=== PATIENT | male | born 1970 | race Caucasian/White ===

== ENCOUNTER 2019-10-25 18:51 | Emergency (ER) | payer OTHER ==
[~2019-10-25] VITALS: Ht 157.5 cm; Wt 54.0 kg
[2019-10-25 19:05] VITALS: BP 163/94
--- NOTE | 2019-10-25 19:28 | PHYS DOC ---
Adult General Chief Complaint Chief Complaint: HYPERTENSION HPI HPI Patient is a 49 year old male who presents with concern for elevated blood pressure. Patient states she is monitor blood pressure daily has been doing so for the past month daily blood pressures averaging greater than 160. This afternoon, the patient states her blood pressure was in 170/110's. She denies symptoms of the time but does report feeling anxious afterwards sometimes after taking her blood pressure multiple times in a row. She also reports numbness in the arm in which she would take blood pressure cuff. She reports increased stress and difficulty sleeping at night possibly treating to abnormal blood pres sure readings. Patient is not currently on blood pressure medication, but has plans to follow-up with her PCP. Patient's blood pressure on ED arrival is 160s over 90s. Denies chest pains palpitations, shortness breath dizziness headache. No other acute symptoms or complaints. [] Review of Systems Review of Systems Review symptoms as per history of present illness. All other review symptoms are negative All other systems were reviewed and found to be within normal limits, except as documented in this note. Allergies Allergies Allergies Coded Allergies Type Severity Reaction Last Updated Verified No Known Drug Allergies 10/25/19 No Physical Exam Physical Exam Constitutional: Well developed, well nourished, no acute distress. [] HENT: Normocephalic, atraumatic, bilateral external ears normal, nose normal. [] Eyes: PERRLA, EOMI, conjunctiva normal, no discharge. [] Neck: Normal range of motion, no tenderness. [] Cardiovascular:Heart rate regular rhythm, no murmur [] Lungs & Thorax: Bilateral breath sounds clear to auscultation [] Abdomen: Bowel sounds normal, soft, no tenderness. [] Skin: Warm, dry, no erythema, no rash. [] Back: No tenderness. [] Extremities: No tenderness. [] Neurologic: Alert and oriented X 3, normal motor function, normal sensory function, no focal deficits noted. [] Psychologic: Affect normal, judgement normal, mood normal. [] EKG EKG [] Radiology/Procedures Radiology/Procedures [] Course & Med Decision Making Course & Med Decision Making Pertinent Labs and Imaging studies reviewed. (See chart for details) [Patient asymptomatic in the emergency department. Blood pressure is 160s over 90s. No further treatment and diagnosed this indicated at this time Recommend continued daily monitoring, watchful waiting and PCP follow-up next week for further management.] [place] Disclaimer Dragon Disclaimer This electronic medical record was generated, in whole or in part, using a voice recognition dictation system. Departure Departure Impression: Primary Impression: High blood pressure Disposition: ADMITTED INPATIENT Condition: STABLE Patient Instructions: Hypertension Additional Instructions: Please follow up with your PCP early next week for re-evaluation and management of your blood pressure. FITZ KAMINSKI DO Oct 25, 2019 19:28
== END 2019-10-25 19:26 | disposition home or self-care (01) ==
LOC: ER 18:51
DX: I10 Essential (primary) hypertension (principal)
CPT/HCPCS: 99284

== ENCOUNTER 2019-12-09 18:02 | Emergency (ER) | payer OTHER ==
[~2019-12-09] VITALS: Ht 157.5 cm; Wt 54.1 kg
[2019-12-09 18:43] VITALS: BP 145/86
[2019-12-09] MEDS ORDERED: LIDOCAINE WITH 8.4% SOD BICARB 3 ML DISP.SYRIN. INJ ONE ×2 (18:45)
--- NOTE | 2019-12-09 19:48 | PHYS DOC ---
Past Medical History Past Medical History: Anxiety, Depression (ASHISH CORTÉS APRN) Additional Past Surgical Histo: CERVICAL TISSUE REMOVAL (ASHISH CORTÉS APRN) Smoking Status: Never Smoker Alcohol Use: Rarely Drug Use: None (ASHISH CORTÉS APRN) Attending Signature I have participated in the care of this patient and I have reviewed and agree with all pertinent clinical information above including history, exam, and recommendations. (RUT MORALES MD) Adult General Chief Complaint Chief Complaint: LACERATION/AVULSION HPI HPI Patient is a 49 year old Female who presents with right hand laceration, patient states she was doing dishes washing a glass when it broke and cut her.patient is right-handed (ASHISH CORTÉS APRN) Review of Systems Review of Systems Constitutional: Denies fever or chills [] Musculoskeletal: Denies back pain or joint pain [] Integument: right hand laceration Neurologic: Denies headache, focal weakness or sensory changes [] All other systems were reviewed and found to be within normal limits, except as documented in this note. (ASHISH CORTÉS APRN) Current Medications Current Medications Current Medications Medications (Trade) Dose Ordered Sig/Erica Start Time Stop Time Status Last Admin Dose Admin Lidocaine HCl (Buffered Lidocaine 1%) 6 ml 1X ONCE 12/09/19 18:45 12/09/19 18:46 DC (RUT MORALES MD) Allergies Allergies Allergies Coded Allergies Type Severity Reaction Last Updated Verified No Known Drug Allergies 10/25/19 No (RUT MORALES MD) Physical Exam Physical Exam Constitutional: Well developed, well nourished, no acute distress, non-toxic appearance. [] Skin: Right ro eminence with a skin avulsion type laceration approximately 3 cm long. Skin is still attached on the base. Neurovascular exam is intact to the right hand.+2 right radial pulse. Cap refill less than 2 seconds the right hand. Back: No tenderness, no CVA tenderness. [] Extremities: No tenderness, no cyanosis, no clubbing, ROM intact, no edema. [] Neurologic: Alert and oriented X 3, normal motor function, normal sensory function, no focal deficits noted. [] Psychologic: Affect normal, judgement normal, mood normal. [] (ASHISH CORTÉS APRN) Current Patient Data Vital Signs Vital Signs Date Time Temp Pulse Resp B/P (MAP) Pulse Ox O2 Delivery O2 Flow Rate FiO2 12/09/19 18:43 98.8 88 16 145/86 (105) 100 Room Air 98.8 (RUT MORALES MD) EKG EKG [] (ASHISH CORTÉS APRN) Radiology/Procedures Radiology/Procedures Laceration/Wound Repair Wound Location: right hand Wound's Depth, Shape: C Wound Length (cm): approximately 3 cm Wound Explored: clean Irrigated w/ Saline (ccs): 100 Betadine Prep?: Y Anesthesia: 1% buffered lidocaine Volume Anesthetic (ccs): 4 Wound Repaired With: Vicryl Suture Size/Type: 4.0/interrupted sutures Number of Sutures: 7 Progress :wound was covered with nonstick dressing (ASHISH CORTÉS APRN) Course & Med Decision Making Course & Med Decision Making Pertinent Labs and Imaging studies reviewed. (See chart for details) Patient has right hand laceration that was closed by me as noted in procedures, tetanus up-to-date. Wound care instructions and return precautions provided. (ASHISH CORTÉS APRN) Dragon Disclaimer Dragon Disclaimer This electronic medical record was generated, in whole or in part, using a voice recognition dictation system. (ASHISH CORTÉS APRN) Departure Departure Impression: Primary Impression: Laceration of right hand Disposition: 01 HOME, SELF-CARE Condition: STABLE Referrals: UNKNOWN PCP NAME (PCP) Follow-up with your doctor as needed Patient Instructions: Laceration Care, Adult, [id number] Additional Instructions: You have right hand laceration that was closed with dissolvable stitches, keep the area clean and dry. You can shower and wash the area. Apply Neosporin to the area twice a day for 7 days. Monitor the area for any signs of infection including but not limited to increased redness, warmth, yellow drainage from the area and return to the ED if they occur. Problem Qualifiers Primary Impression: Laceration of right hand Encounter type: initial encounter Foreign body presence: without foreign body Qualified Codes: S61.411A - Laceration without foreign body of right hand, initial encounter ASHISH CORTÉS APRN Dec 09, 2019 19:47 RUT MORALES MD Dec 10, 2019 02:45
== END 2019-12-09 19:53 | disposition home or self-care (01) ==
LOC: ER 18:02
DX: S61.411A Laceration without foreign body of right hand, initial encounter (principal); W25.XXXA Contact with sharp glass, initial encounter; Y93.G1 Activity, food preparation and clean up; Y92.89 Other specified places as the place of occurrence of the external cause; Y99.8 Other external cause status
CPT/HCPCS: 12002; 99283